=== PATIENT | male | born 1990 | race Caucasian/White ===

== ENCOUNTER 2017-04-17 04:26 | Emergency (ER) | payer BC, MEDICAID ==
--- NOTE | 2017-04-17 04:51 | EDM.PDOC ---
ED HPI GENERAL MEDICAL PROBLEM - General Chief Complaint: Drug or Alcohol Abuse Stated Complaint: SEIZURE Time Seen by Provider: 04/17/17 04:30 Source of Information: Reports: Patient, EMS, EMS Notes Reviewed History Limitations: Reports: No Limitations - History of Present Illness INITIAL COMMENTS - FREE TEXT/NARRATIVE: EMS responded to a call for an unresponsive patient who had been drinking tonight and may have consumed drugs. Upon arrival, patient was discovered laying on his side on the floor in the basement, bluish in color with agonal respirations. An DENTAL SPECIALIST was inserted and he was bagged with 100% 02, Narcan .4 mg IM administered x 2, and Versed administered IV when first seizire occurred. This lasted about a minute, followed by 3 brief seizures characterized by tonic clonic movement of all extremities. Color did improve, and following second dose of Narcan, patient awoke, sat up, and asked what was going on. He has been stable neurologically since, orientated to all spheres, GC Scale of 15. He is vague about possible drug use, reported drinking "some beers". He has been going thru some stressors recently with the illness of a close friend. There is no reported suicidal or homicidal ideation. He has been treated in the past for Anxiety, and reportedly took 1 0.5 mg XANAX tab sometime this evening. He is anxious to leave the ED. - Related Data Allergies Allergy/AdvReac Type Severity Reaction Status Date / Time No Known Allergies Allergy Verified 04/17/17 04:33 Home Meds: Home Meds NK [No Known Home Meds] 04/17/17 [History] Past Medical History Psychiatric History: Reports: Anxiety Social & Family History - Tobacco Use Smoking Status *Q: Never Smoker - Caffeine Use Caffeine Use: Reports: Tea - Recreational Drug Use Recreational Drug Type: Reports: Marijuana/Hashish ED ROS GENERAL - Review of Systems Review Of Systems: See Below Constitutional: Reports: No Symptoms HEENT: Reports: No Symptoms Respiratory: Reports: No Symptoms Cardiovascular: Reports: No Symptoms Endocrine: Reports: No Symptoms GI/Abdominal: Reports: No Symptoms : Reports: No Symptoms Musculoskeletal: Reports: No Symptoms Skin: Reports: No Symptoms Neurological: Reports: Seizure Psychiatric: Reports: Anxiety, Mood Lability Hematologic/Lymphatic: Reports: No Symptoms Immunologic: Reports: No Symptoms - Physical Exam Exam: See Below Exam Limited By: No Limitations General Appearance: Alert, WD/WN, No Apparent Distress, Anxious Eye Exam: Bilateral Eye: Abnormal Pupil (pupils small at EMS exam, now PERRLA), EOMI, Normal Inspection, PERRL Ears: Normal External Exam, Normal TMs Nose: Normal Inspection Throat/Mouth: Normal Inspection, Normal Lips, Normal Teeth, Normal Oropharynx Head Exam: Atraumatic, Normocephalic Neck: Normal Inspection, Supple, Non-Tender, Full Range of Motion Respiratory/Chest: Lungs Clear, Normal Breath Sounds Cardiovascular: Normal Peripheral Pulses, No Edema, No JVD, No Murmur, Tachycardia GI/Abdominal: Normal Bowel Sounds, Soft, Non-Tender, No Organomegaly, No Distention, No Mass (Male) Exam: No Hernia Rectal (Males) Exam: Normal Exam Neuro Exam (Abbreviated): Alert, Oriented, CN II-XII Intact, Normal Cognition, Normal Gait, Normal Reflexes, No Motor/Sensory Deficits Back Exam: Normal Inspection Extremities: Normal Inspection Psychiatric: Anxious, Tearful Skin Exam: Warm, Dry, Intact Course - Vital Signs Text/Narrative:: Will remained stable at the [facility] ED. No new meds were administered. His grandparents were available to drive him home. His results were shared with him. Last Recorded V/S: Last Vital Signs Temp 36.4 C 04/17/17 04:52 Pulse 124 H 04/17/17 04:52 Resp 21 H 04/17/17 04:52 BP 152/109 H 04/17/17 04:52 Pulse Ox 97 04/17/17 04:52 - Orders/Labs/Meds Orders: Active Orders 24 hr Category Date Time Status EKG Documentation Completion [RC] ASDIRECTED Care 04/17/17 04:40 Active EKG Documentation Completion [RC] ASDIRECTED Care 04/17/17 04:42 Inactive TROPONIN I [CHEM] Stat Lab 04/17/17 04:40 Received UA W/MICROSCOPIC [URIN] Stat Lab 04/17/17 04:46 Received EKG 12 Lead [EK] Routine Ther 04/17/17 04:40 Ordered EKG 12 Lead [EK] Routine Ther 04/17/17 04:41 Stop Req Labs: Laboratory Tests 04/17/17 04/17/17 04/17/17 Range/Units 04:40 04:40 04:40 WBC 12.3 H (4.5-12.0) X10-3/uL RBC 5.67 (4.30-5.75) x10(6)uL Hgb 16.0 H (11.5-15.5) g/dL Hct 49.4 (30.0-51.3) % MCV 87.2 (80-96) fL MCH 28.3 (27.7-33.6) pg MCHC 32.4 (32.2-35.4) g/dL RDW 12.9 (11.5-15.5) % Plt Count 277 (125-369) X10(3)uL MPV 9.5 (7.4-10.4) fL Neut % (Auto) 67.1 (46-82) % Lymph % (Auto) 23.1 (13-37) % Shasta % (Auto) 5.5 (4-12) % Eos % (Auto) 3 (1.0-5.0) % Baso % (Auto) 1 (0-2) % Neut # (Auto) 8.3 (1.6-8.3) # Lymph # (Auto) 2.8 (0.6-5.0) # Shasta # (Auto) 0.7 (0.0-1.3) # Eos # (Auto) 0.4 (0.0-0.8) # Baso # (Auto) 0.1 (0.0-0.2) # Sodium 139 (135-145) mmol/L Potassium 3.8 (3.5-5.3) mmol/L Chloride 105 (100-110) mmol/L Carbon Dioxide 24 (23-29) mmol/L BUN 18 (5-20) mg/dL Creatinine 1.1 (0.6-1.3) mg/dL Est Cr Clr Drug Dosing 114.00 mL/min Estimated GFR (MDRD) > 60 (>60) BUN/Creatinine Ratio 16.4 (9-20) Glucose 119 H (80-116) mg/dL Calcium 9.3 (8.6-10.2) mg/dL Total Bilirubin 0.4 (0.1-1.3) mg/dL AST 17 (5-27) IU/L ALT 22 (14-26) IU/L Alkaline Phosphatase 75 (56-112) IU/L Total Protein 8.6 H (6.0-8.0) g/dL Albumin 4.8 (3.5-5.2) g/dL Globulin 3.8 g/dL Albumin/Globulin Ratio 1.3 Urine Opiates Screen (NEGATIVE) Ur Oxycodone Screen (NEGATIVE) Ur Propoxyphene Screen (NEGATIVE) Acetaminophen (10-30) ug/mL Ur Barbituates Screen (NEGATIVE) Ur Tricyclics Screen (NEGATIVE) Ur Phencyclidine Scrn (NEGATIVE) Ur Amphetamine Screen (NEGATIVE) Urine MDMA Screen (NEGATIVE) U Benzodiazepines Scrn (NEGATIVE) U Cocaine Metab Screen (NEGATIVE) U Marijuana (THC) Screen (NEGATIVE) Ethyl Alcohol 0.02 H (<0.01) % 04/17/17 04/17/17 Range/Units 04:40 04:46 WBC (4.5-12.0) X10-3/uL RBC (4.30-5.75) x10(6)uL Hgb (11.5-15.5) g/dL Hct (30.0-51.3) % MCV (80-96) fL MCH (27.7-33.6) pg MCHC (32.2-35.4) g/dL RDW (11.5-15.5) % Plt Count (125-369) X10(3)uL MPV (7.4-10.4) fL Neut % (Auto) (46-82) % Lymph % (Auto) (13-37) % [place]asta % (Auto) (4-12) % Eos % (Auto) (1.0-5.0) % Baso % (Auto) (0-2) % Neut # (Auto) (1.6-8.3) # Lymph # (Auto) (0.6-5.0) # Shasta # (Auto) (0.0-1.3) # Eos # (Auto) (0.0-0.8) # Baso # (Auto) (0.0-0.2) # Sodium (135-145) mmol/L Potassium (3.5-5.3) mmol/L Chloride (100-110) mmol/L Carbon Dioxide (23-29) mmol/L BUN (5-20) mg/dL Creatinine (0.6-1.3) mg/dL Est Cr Clr Drug Dosing mL/min Estimated GFR (MDRD) (>60) BUN/Creatinine Ratio (9-20) Glucose (80-116) mg/dL Calcium (8.6-10.2) mg/dL Total Bilirubin (0.1-1.3) mg/dL AST (5-27) IU/L ALT (14-26) IU/L Alkaline Phosphatase (56-112) IU/L Total Protein (6.0-8.0) g/dL Albumin (3.5-5.2) g/dL Globulin g/dL Albumin/Globulin Ratio Urine Opiates Screen Negative (NEGATIVE) Ur Oxycodone Screen Negative (NEGATIVE) Ur Propoxyphene Screen Negative (NEGATIVE) Acetaminophen < 10 L (10-30) ug/mL Ur Barbituates Screen Negative (NEGATIVE) Ur Tricyclics Screen Negative (NEGATIVE) Ur Phencyclidine Scrn Negative (NEGATIVE) Ur Amphetamine Screen Negative (NEGATIVE) Urine MDMA Screen Negative (NEGATIVE) U Benzodiazepines Scrn Positive H (NEGATIVE) U Cocaine Metab Screen Positive H (NEGATIVE) U Marijuana (THC) Screen Positive H (NEGATIVE) Ethyl Alcohol (<0.01) % Departure - Departure Time of Disposition: 05:22 Disposition: Home, Self-Care 01 Clinical Impression: Seizure-like activity, Polysubstance abuse - Discharge Information Forms: ED Department Discharge - Problem List & Annotations (1) Seizure-like activity SNOMED Code(s): 703791627 Code(s): R56.9 - UNSPECIFIED CONVULSIONS Status: Acute Current Visit: Yes Annotation/Comment:: Seizures related to drug abuse, and could relapse with continued abuse. Drug treatment recommended. (2) Polysubstance abuse SNOMED Code(s): 682615036 Code(s): F19.10 - OTHER PSYCHOACTIVE SUBSTANCE ABUSE, UNCOMPLICATED Status : Acute Current Visit: Yes Annotation/Comment:: Drug abuse appears chronic, and would benefit from treatment for CD. - Problem List Review Problem List Initiated/Reviewed/Updated: Yes - My Orders Last 24 Hours: My Active Orders 04/17/17 04:40 EKG Documentation Completion [RC] ASDIRECTED TROPONIN I [CHEM] Stat EKG 12 Lead [EK] Routine 04/17/17 04:41 EKG 12 Lead [EK] Routine 04/17/17 04:42 EKG Documentation Completion [RC] ASDIRECTED 04/17/17 04:46 UA W/MICROSCOPIC [URIN] Stat - Assessment/Plan Last 24 Hours: My Active Orders 04/17/17 04:40 EKG Documentation Completion [RC] ASDIRECTED TROPONIN I [CHEM] Stat EKG 12 Lead [EK] Routine 04/17/17 04:41 EKG 12 Lead [EK] Routine 04/17/17 04:42 EKG Documentation Completion [RC] ASDIRECTED 04/17/17 04:46 UA W/MICROSCOPIC [URIN] Stat Plan: Follow up with PCP or consider CD treatment.
[2017-04-17 04:54] VITALS: BP 152/109
== END 2017-04-17 05:30 | disposition home or self-care (01) ==
LOC: FB.ED 04:26
DX: R56.9 Unspecified convulsions (principal); F41.9 Anxiety disorder, unspecified; F19.129 Other psychoactive substance abuse with intoxication, unspecified
CPT/HCPCS: 36415; 80053; 80305; 81001; 84484; 85025; 93005; 99284; G0480

== ENCOUNTER 2020-09-11 15:08 | Emergency (ER) | payer SELFPAY ==
--- NOTE | 2020-09-11 16:02 | EDM.PDOC ---
ED HPI GENERAL MEDICAL PROBLEM - General Chief Complaint: General Stated Complaint: TOOTH PAIN Time Seen by Provider: 09/11/20 15:20 Source of Information: Reports: Patient History Limitations: Reports: No Limitations - History of Present Illness INITIAL COMMENTS - FREE TEXT/NARRATIVE: Has cavities in the lower right teeth . One of the tooth broke off a few days ago . since then has pain ,swelling , tenderness in the area of the tooth No fever or chills , jaw swelling no headache. Onset: Gradual Onset Date: 09/09/20 Duration: Day(s):, Getting Worse Location: Reports: Head Quality: Reports: Ache Severity: Moderate Improves with: Reports: Cold Therapy Worsens with: Reports: Eating Associated Symptoms: Reports: No Other Symptoms - Related Data Allergies Allergy/AdvReac Type Severity Reaction Status Date / Time No Known Allergies Allergy Verified 09/11/20 15:26 Home Meds: Home Meds Amoxicillin/Potassium Clav [Augmentin 875-125 Tablet] 1 each PO BID #20 tablet 09/11/20 [Rx] Ketorolac [Toradol] 10 mg PO Q6H PRN #20 tab 09/11/20 [Rx] Past Medical History - Past Health History Medical/Surgical History: Denies Medical/Surgical History Psychiatric History: Reports: Anxiety Social & Family History - Caffeine Use Caffeine Use: Reports: Tea ED ROS GENERAL - Review of Systems Review Of Systems: See Below Constitutional: Reports: No Symptoms. Denies: Fever, Chills, Malaise HEENT: Reports: Dental Pain. Denies: Throat Pain, Throat Swelling Respiratory: Reports: No Symptoms Cardiovascular: Reports: No Symptoms Endocrine: Reports: No Symptoms GI/Abdominal: Reports: No Symptoms : Reports: No Symptoms Musculoskeletal: Reports: No Symptoms Skin: Reports: No Symptoms Neurological: Reports: No Symptoms Psychiatric: Reports: No Symptoms ED EXAM, GENERAL - Physical Exam Exam: See Below Exam Limited By: No Limitations General Appearance: Alert, WD/WN Eye Exam: Bilateral Eye: EOMI Ears: Normal External Exam Throat/Mouth: Other (lower premolar broken tender to palpation marni surrounding gingival swelling and redness) Head: Atraumatic, Normocephalic Neck: Supple, Non-Tender, Lymphadenopathy (R) Respiratory/Chest: No Respiratory Distress, Lungs Clear, Normal Breath Sounds Cardiovascular: Regular Rate, Rhythm GI/Abdominal: Soft, Non-Tender Back Exam: Full Range of Motion Extremities: Normal Range of Motion, Non-Tender Neurological: Alert, Oriented Course - Vital Signs Last Recorded V/S: Last Vital Signs Temp 36.5 C 09/11/20 16:17 Pulse 60 09/11/20 16:17 Resp 16 09/11/20 16:17 BP 164/104 H 09/11/20 16:17 Pulse Ox 100 09/11/20 16:17 - Orders/Labs/Meds Meds: Medications Discontinued Medications Generic Name Dose Route Start Last Admin Trade Name Freq PRN Reason Stop Dose Admin Amoxicillin/Clavulanate Potassium 1 tab 09/11/20 16:13 09/11/20 16:19 Augmentin 875 Mg/125 Mg PO 09/11/20 16:14 1 tab ONETIME ONE Administration Ketorolac Tromethamine 60 mg 09/11/20 16:07 09/11/20 16:14 Toradol IM 09/11/20 16:08 60 mg ONETIME ONE Administration - Re-Assessments/Exams Free Text/Narrative Re-Assessment/Exam: 09/11/20 16:12 pt given Im toradol , will be sent home on Augmentin Departure - Departure Time of Disposition: 16:15 Disposition: Home, Self-Care 01 Condition: Fair Clinical Impression: Dental caries extending into pulp, Pain due to dental caries, Gingivitis - Discharge Information *PRESCRIPTION DRUG MONITORING PROGRAM REVIEWED*: Not Applicable *COPY OF PRESCRIPTION DRUG MONITORING REPORT IN PATIENT AMI: Not Applicable Prescriptions: Amoxicillin/Potassium Clav [Augmentin 875-125 Tablet] 1 each PO BID #20 tablet Ketorolac [Toradol] 10 mg PO Q6H PRN #20 tab PRN Reason: Pain (Moderate 4-6) Instructions: Preventive Dental Care, Adult Referrals: PCP,None [Primary Care Provider] - Forms: ED Department Discharge Additional Instructions: Warm salt water gurgles 3 times daily Take tylenol ES 500mg : 2 tabs every 6 hrs as needed Keep appointment with dentist or ENT Sepsis Event Note (ED) - Focused Exam Vital Signs: Vital Signs Temp Pulse Resp BP Pulse Ox 09/11/20 16:17 36.5 C 60 16 164/104 H 100
[2020-09-11] MEDS: Ketorolac 60 MG/2 ML SDV IM ONE (16:14)
[2020-09-11 16:18] VITALS: BP 164/104; PULSE 60
[2020-09-11] MEDS: Amoxicillin/Clavulanate K 875-125 MG Tab PO ONE (16:19)
== END 2020-09-11 16:25 | disposition home or self-care (01) ==
LOC: FB.ED 15:08
DX: K02.9 Dental caries, unspecified (principal); K05.10 Chronic gingivitis, plaque induced
CPT/HCPCS: 96372; 99282; 99283; A9270-GY; J1885

== ENCOUNTER 2022-04-18 13:34 | Emergency (ER) | payer OTHER ==
[2022-04-18] MEDS ORDERED: Ketorolac 30 MG/ML SDV IVPUSH ONE (13:35)
[2022-04-18] MEDS ORDERED: Sodium Chloride 0.9% 10 ML Syringe FLUSH PRN (13:35)
[2022-04-18] MEDS ORDERED: Morphine 4 MG/ML VIAL IVPUSH ONE (13:35)
[2022-04-18] MEDS ORDERED: Lidocaine 2% Viscous Solution 15 ML UD TOP STA (13:37)
[2022-04-18] MEDS ORDERED: Diphtheria,Pertussis(Acell),Tetanus Vaccine 0.5 ML Syringe IM ONE (13:43)
[2022-04-18] MEDS ORDERED: Sodium Chloride 0.9% 1,000 ML IV SCH (13:45)
[2022-04-18] MEDS ORDERED: HYDROmorphone 2 MG/ML SDV IVPUSH ONE (13:58)
[2022-04-18 14:01] LABS: ESTIMATED GFR 103 mL/min (>60)
[2022-04-18 15:30] VITALS: BP 155/90; PULSE 57
== END 2022-04-18 15:15 | disposition home or self-care (01) ==
LOC: FB.ED 13:34
DX: T21.22XA Burn of second degree of abdominal wall, initial encounter (principal); T24.231A Burn of second degree of right lower leg, initial encounter; T21.11XA Burn of first degree of chest wall, initial encounter; T25.111A Burn of first degree of right ankle, initial encounter; T25.112A Burn of first degree of left ankle, initial encounter; Z23 Encounter for immunization; Z79.899 Other long term (current) drug therapy; X14.1XXA Other contact with hot air and other hot gases, initial encounter
CPT/HCPCS: 36415; 80048; 85025; 90471; 90715; 96361; 96374; 96375; 99283; A9270; J1170; J1885; J2270; J7030

== ENCOUNTER 2023-01-27 12:33 | Emergency (ER) | payer OTHER ==
[2023-01-27 12:56] VITALS: BP 130/95; PULSE 124
[2023-01-27] MEDS ORDERED: Ibuprofen 800 MG Tab PO ONE (13:15)
[2023-01-27] MEDS ORDERED: Ibuprofen 800 MG Tab ONE (13:15)
== END 2023-01-27 13:20 | disposition home or self-care (01) ==
LOC: FB.ED 12:33
DX: S43.102A Unspecified dislocation of left acromioclavicular joint, initial encounter (principal); V89.2XXA Person injured in unspecified motor-vehicle accident, traffic, initial encounter
CPT/HCPCS: 73030; 99283; A9270; 99282